=== PATIENT | male | born 1990 | race Caucasian/White ===

== ENCOUNTER 2016-12-30 05:24 | Day surgery (SDC) | payer OTHER ==
[~2016-12-30] VITALS: Ht 180.3 cm; Wt 105.7 kg
[~2016-12-30 05:24] MED LIST: APAP500 PO; CHOLESTYRAMINE P4 GM PO; DEXILANT60 MG PO; IBUPROFEN 800800 M1 PO; XANAX 0.5 MG0.5 MG PO; ZYRTEC10 M5 PO
[2016-12-30 06:45] VITALS: BP 131/76
[2016-12-30] MEDS ORDERED: ASPIRIN325 PO (09:51)
[2016-12-30 10:45] VITALS: BP 131/76
== END 2016-12-30 10:55 | disposition home or self-care (01) ==
LOC: OR 05:24 → TBA 05:24 → OR 10:55
DX: M23.8X1 Other internal derangements of right knee (principal); F41.8 Other specified anxiety disorders; K21.9 Gastro-esophageal reflux disease without esophagitis; Z98.890 Other specified postprocedural states; Z87.891 Personal history of nicotine dependence; Z90.49 Acquired absence of other specified parts of digestive tract; Z79.82 Long term (current) use of aspirin
CPT/HCPCS: 50010; 50101; 50386; 50954; 51412; 52181; 52201; 52282; 56524; 56525; 56527; 57091; 62110; 62900; 70005